=== PATIENT | female | born 1995 | race Caucasian/White ===

== ENCOUNTER 2018-09-27 13:32 | Emergency (ER) | END 2018-09-27 17:08 | disposition home or self-care (01) ==

== ENCOUNTER 2019-02-01 13:05 | Outpatient (CLI) | payer MEDICAID ==
[~2019-02-01] VITALS: Ht 165.1 cm; Wt 89.8 kg
[~2019-02-01 13:05] MED LIST: ACET500C5 PO; CALC-649 PO; CEPH-443 PO; FERR27TA PO; PREN1TAB49 PO
[2019-02-01 13:25] VITALS: Ht 165.1 cm; Wt 89.8 kg
--- NOTE | 2019-02-01 16:27 | PN ---
Triage Information Date/Time Reason for visit: patient had shortness of abdomen before and some abdominal pain Weeks of Gestation 32+ /Para 3/2 Diabetes: none Hypertention: none Objective Heart Rate: 140's Contractions: None Disposition: Discharge Assessment/Plan Labs reviewed Ultrasound reviewed BPP 08/11 Questiosn answered Follow up for provider Precautiosn discussed, She doesn't have SOB VINH RIVERA M.D. Feb 01, 2019 16:27
== END 2019-02-01 16:27 | disposition home or self-care (01) ==
LOC: OBT 13:05 → L-D 13:05 → OBT 16:27
PROVIDERS: ATTEND Obstetrics & Gynecology
DX: O26.893 Other specified pregnancy related conditions, third trimester (principal); R10.9 Unspecified abdominal pain; Z3A.32 32 weeks gestation of pregnancy
CPT/HCPCS: 76817; 76818; Z7500; G0463

== ENCOUNTER 2019-03-13 23:37 | Outpatient (CLI) | payer MEDICAID ==
[~2019-03-13] VITALS: Ht 160 cm; Wt 95.0 kg
[~2019-03-13 23:37] MED LIST changes: -ACET500C5 PO; -CALC-649 PO; -CEPH-443 PO
[2019-03-14 00:33] VITALS: Ht 160 cm; Wt 95.0 kg
[2019-03-14] MEDS ORDERED: TERBUTALINE 1 MG/ML INJ SC ONE (02:00)
[2019-03-14] MEDS ORDERED: LACTATED RINGER'S 1,000 ML IV ONE (02:00)
[2019-03-14] MEDS ORDERED: LACTATED RINGER'S 1,000 ML IV SCH (03:00)
--- NOTE | 2019-03-14 06:29 | TRIAGE ---
OB Triage Datetime Report Generated by CPN: 03/14/2019 06:29 Datetime: 03/14/2019 03:42 Stage of : OB Triage Labor Evaluation Frequency: X1 Monitor Mode: External Duration (sec)2399: 80 Quality: Mild Pattern: Normal: <= 5 Contractions in 10 Minutes Resting Tone [place]: Relaxed Heart Rate FHR Baseline Rate: 135 Monitor Mode: External US Variability: Moderate 6-25 bpm Accelerations: 15X15 Decelerations: None Category: Category I Datetime: 03/14/2019 03:01 Comments: LOSS OF CONTACT. PT SITTING UPRIGHT. EFM REVERTS TO MATERNAL HR Datetime: 03/14/2019 02:31 Pain Assessment Pain Scale: 7 Pain Presence: Intermittent Pain Type: Contraction Pain Location: Abdomen Pain Relief Measures: Comfort Measures Datetime: 03/14/2019 02:30 Stage of : OB Triage Labor Evaluation Frequency: X3 Monitor Mode: External Duration (sec)2399: 60-80 Pattern: Normal: <= 5 Contractions in 10 Minutes Resting Tone [place]: Relaxed Heart Rate FHR Baseline Rate: 135 Monitor Mode: External US Variability: Moderate 6-25 bpm Accelerations: 15X15 Decelerations: None Category: Category I Datetime: 03/14/2019 02:11 Monitor Mode: External US Datetime: 03/14/2019 01:50 Vaginal Exam Dilatation (cms): 1.0 Effacement (%): 50 Station: -3 Exam By: C CASSIUS Datetime: 03/14/2019 01:30 Stage of : OB Triage Labor Evaluation Frequency: IRREGULAR Monitor Mode: External Duration (sec)2399: 30-40 Quality: Mild Pattern: Normal: <= 5 Contractions in 10 Minutes Resting Tone [place]: Relaxed Heart Rate FHR Baseline Rate: 135 Monitor Mode: External US Variability: Moderate 6-25 bpm Accelerations: 15X15 Decelerations: None Category: Category I Datetime: 03/14/2019 00:35 Stage of : OB Triage Labor Evaluation Frequency: X3 Monitor Mode: External Duration (sec)2399: 90 Quality: Mild Pattern: Normal: <= 5 Contractions in 10 Minutes Resting Tone [place]: Relaxed Heart Rate FHR Baseline Rate: 145 Monitor Mode: External US Variability: Moderate 6-25 bpm Accelerations: 15X15 Decelerations: None Category: Category I Datetime: 03/14/2019 00:23 Time of Arrival: 03/13/2019 23:30 EGA: 37.5 Arrived By: Ambulatory Arrived From: Home Chief Complaint: CONTRACTIONS SINCE 1529 Movement: Present Contractions: Irregular Time Contractions Began: 03/13/2019 15:30 Contractions: X1/30 MINS Rupture of Membranes: Denies Vaginal Bleeding: None Vaginal Discharge: Denies Recent Sexual Intercouse: Denies Abdominal Trauma: Not Applicable Patient Complaints: Contractions Time Provider Notified: 03/13/2019 23:45 Provider Notified: DR. GLASS Initial Plan: EFM, SVE, CALL OB Datetime: 03/13/2019 23:45 Monitor Mode: External Contraction Comments: APPLIED Monitor Mode: External US Comments: APPLIED Vaginal Exam Dilatation (cms): 1.0 Effacement (%): 50 Station: -3 Exam By: Madonna HAMMONDS Vaginal Bleeding: None Cervix, Consistency: Moderate Cervix, Position: Posterior Datetime: 03/13/2019 23:40 Stage of : OB Triage Maternal Assessment Level of Consciousness: Fully Conscious DTR's/Clonus: DTRs 2+; No Clonus Headache: Denies Blurred Vision: No Respiratory Effort: Unlabored; Regular Rhythm; Equal Expansion Breath Sounds, Left: Clear and Equal Breath Sounds, Right: Clear and Equal Nausea/Vomiting: Denies RUQ Epigastric Pain: Denies Lower Extremities Edema: None Degree: None Upper Extremities Edema: None Degree: None Facial Edema: None Temperature Route: Oral Fall Risk Assessment History of Falling: (0) No Secondary Diagnosis: (0) No Ambulatory Aid: (0) Bedrest/Nurse Assist IV Therapy: (0) No Gait: (0) Normal/Bedrest/Immobile Mental Status: (0) Oriented to Own Ability Fall Score: 0 Fall Risk Score Definition: No Risk: No action required Pain Assessment Pain Scale: 6 Pain Presence: Intermittent Pain Type: Cramping Pain Location: Abdomen Pain Relief Measures: Comfort Measures Datetime: 02/01/2019 14:59 Respiratory Effort: Unlabored Breath Sounds, Left: Clear and Equal Breath Sounds, Right: Clear and Equal Labor Evaluation Frequency: X1 Monitor Mode: External Duration (sec)2399: 60 Quality: Mild Pattern: Normal: <= 5 Contractions in 10 Minutes Resting Tone [place]: Relaxed Heart Rate FHR Baseline Rate: 135 Monitor Mode: External US Variability: Moderate 6-25 bpm Accelerations: 15X15 Decelerations: None Category: Category I Pain Assessment Pain Scale: 0 Pain Presence: None/Denies Pain Type: N/A Pain Goal: 3 Datetime: 02/01/2019 13:42 Maternal Assessment Level of Consciousness: Fully Conscious DTR's/Clonus: DTRs 1+ Headache: Denies Blurred Vision: No Respiratory Effort: Unlabored Breath Sounds, Left: Clear and Equal Breath Sounds, Right: Clear and Equal Nausea/Vomiting: Denies RUQ Epigastric Pain: Denies Facial Edema: None Monitor Mode: External Resting Tone [place]: Relaxed Heart Rate FHR Baseline Rate: 145 Monitor Mode: External US Variability: Moderate 6-25 bpm Accelerations: 15X15 Decelerations: None Category: Category I Pain Assessment Pain Scale: 0 Pain Presence: None/Denies Pain Type: N/A Pain Goal: 3 Membrane Status: Intact Datetime: 02/01/2019 13:07 EGA: 32.0 Datetime: 02/01/2019 12:55 Time of Arrival: 02/01/2019 12:55 Arrived By: Ambulatory Arrived From: Home Chief Complaint: PT CAME IN C/O SOB AND LEFT SIDE PAIN Movement: Present Contractions: Denies/Absent Rupture of Membranes: Denies Vaginal Discharge: Denies Recent Sexual Intercouse: Denies Abdominal Trauma: Not Applicable
--- NOTE | 2019-03-14 08:46 | PN ---
Triage Information Date/Time 03/14/19 Reason for visit: Uterine contractions Weeks of Gestation 37w6d /Para Diabetes: none Hypertention: none Objective Intake and Output 03/13/19 03/13/19 03/14/19 1515:00 23:00 07:00 IntakeIntake Total 1000 ml BalanceBalance 1000 ml Heart Rate: 140's Heart Rate Comments CAT I Contractions: >10 Minutes Apart Exam VE 150/-3, repeat exam 2hs 50/-3 Results/Medications Results 24 hrs Laboratory Tests Test 03/14/19 01:30 Urine Color YELLOW Urine Clarity CLOUDY A Urine pH 6.0 Urine Specific [place] 1.025 Urine Ketones NEGATIVE Urine Nitrite NEGATIVE Urine Bilirubin NEGATIVE Urine Urobilinogen 1+ H Urine Leukocyte Esterase NEGATIVE Urine Microscopic RBC 7 H Urine Microscopic WBC 7 H Urine Squamous Epithelial Cells MANY A Urine Calcium Oxalate Crystals MANY A Urine Bacteria FEW A Urine Mucus FEW A Urine Hemoglobin NEGATIVE Urine Glucose NEGATIVE Urine Total Protein NEGATIVE Imaging Results BPP 8 TESSA 12.3 Disposition: Discharge Assessment/Plan A IUP 37w6d x2 previous c/s NIL P discharge home with routine labor instructions RTH prn otherwise f/u with her OB OANH GLASS MD March 14, 2019 08:46
== END 2019-03-14 03:55 | disposition home or self-care (01) ==
LOC: L-D 23:37 → OBT 23:37
PROVIDERS: ATTEND Obstetrics & Gynecology
DX: O47.1 False labor at or after 37 completed weeks of gestation (principal); Z3A.37 37 weeks gestation of pregnancy
CPT/HCPCS: 36415; 76818; 81001; 96360; 96372; J3105; J7120; Z7500; Z7610; G0463

== ENCOUNTER 2019-03-23 06:49 | Inpatient (IN) | payer MEDICAID ==
[~2019-03-23] VITALS: Ht 165.1 cm; Wt 95.1 kg
[2019-03-23 07:30] VITALS: BP 106/66; PULSE 86; RESP 16; Ht 165.1 cm; Wt 95.1 kg
[2019-03-23] MEDS ORDERED: MISOPROSTOL 200 MCG TAB PR PRN ×2 (07:30→16:00)
[2019-03-23] MEDS ORDERED: CEFAZOLIN 2 GM/50 ML (PMX) 50 ML IVPB SCH (07:30)
[2019-03-23] MEDS ORDERED: METHYLERGONOVINE 0.2 MG INJ IM PRN ×2 (07:30→16:00)
[2019-03-23] MEDS ORDERED: CARBOPROST 250 MCG INJ IM PRN ×2 (07:30→16:00)
[2019-03-23] MEDS ORDERED: AZITHROMYCIN 500MG/NS (PMX) 250 ML IV SCH (07:30)
[2019-03-23] MEDS ORDERED: OXYTOCIN 30 UNITS/LR 500 ML IV PRN ×2 (07:30→16:00)
[2019-03-23] MEDS ORDERED: LACTATED RINGER'S 1,000 ML IV SCH (07:45)
[2019-03-23] MEDS ORDERED: OXYTOCIN 30 UNITS/LR 500 ML IV SCH ×2 (08:00→15:36)
--- NOTE | 2019-03-23 08:02 | HP ---
Date/Time of Note Date/Time of Note DATE: 03/23/19 TIME: 07:58 OB - History Hx of Present Free Text/Dictation 24 years old 3 para 2-0-0-2 with single intrauterine at 39 weeks and 1 day and two previous delivery desires repeat delivery and permanent surgical sterilization Chief Complaint: Scheduled for repeat delivery and bilateral tubal ligation Estimated Due Date: March 29, 2019 : 3 Para: 2 Spontaneous : 0 Therapeutic : 0 Care: Good Care Ultrasounds: Normal mid trimester US Obstetrical Complications: None Medical Complications: None Past Family/Social History * Past Medical, Surgical, Family and Obstetric Histories reviewed from chart. Blood Type: B+ Rubella: immune RPR/VDRL: Negative GBS Status: Positive HBsAG: Negative OB Admission Exam Vital Signs Vital Signs Vital Signs Date Temp Pulse Resp B/P (MAP) Pulse Ox O2 O2 Flow FiO2 Time Delivery Rate 03/23/19 97.9 86 16 106/66 07:30 (79) Physical Exam HEENT: WNL Heart: Rhythm Normal Lungs: Clear Abdomen: WNL Extremities: Normal Membranes: Intact Heart Rate: 140's Accelerations: Accelerations Present Decelerations: No Decelerations Varibility: Moderate Contractions on Admission: None OB Assessment/Plan Other plan: 24 years old 3 para 2-0-0-2 with 2 previous delivery at 39 w eeks and 1 day desires repeat delivery and permanent surgical sterilization -FHR: No sign of metabolic acidosis- Category I -Continuous EFM, toco -CBC, blood type and screen -Please see the orders -B+/Rubella: Immune -GBS: Positive, no need for GBS prophylaxis as is not in labor and the membranes are intact The risk of delivery including but not limited to bleeding, infection, injury to other organs (bowel, bladder, ureter, vessels, nerves), injury to fetus, blood transfusion, blood transfusion related infection, risk of anesthesia, adhesion, needs for future , removal of uterus or any other indicated surgery, permanent surgical sterilization, other contraceptive options including IUD, increased risk of ectopic if failure of procedure occurs discussed with the patient and her family. She expressed understanding. All of her questions were answered. She signed the informed consent. PHYSICIAN'S VERIFICATION OF INFORMED CONSENT The patient counseled regarding the procedure, its indications, risks, potential complications and alternatives and any questions were answered. Consent was obtained. PLANNED PROCEDURE/TREATMENT: delivery with possible using vacuum/forceps and any other indicated surgery PHYSICIAN'S VERIFICATION OF INFORMED CONSENT FOR BLOOD TRANSFUSION: There is a reasonable possibility that blood transfusion will be necessary as a result of the patient's procedure. I have discussed the following with the patient/patient's legal in home sales representative: An explanation of the benefits and risks of the transfusion of blood or blood products and the possible alternatives. All questions have been answered to the patient's satisfaction. INFORMED CONSENT:The patient has been informed of: The nature of the proposed care, treatment, services, medications, interventions or procedures. Potential benefits, risks or side effects, including potential problems related to recuperation. The likelihood of achieving care treatment and service goals. Reasonable alternatives to the proposed care, treatment and service. The relevant risks, benefits and side effects related to alternatives, including the possible results of not receiving care, treatment and services. When indicated, any limitations on the confidentiality of information learned from or about the patient. If appropriate, the risks, benefits and alternatives of the drugs to be used for sedation/analgesia including moderate sedation. If appropriate, patient has been provided information on the risks, benefits and alternatives to the transfusion of blood and/or blood products. If appropriate, patient has been provided information regarding the [place] Blood Act. WAYNE ROCKWELL March 23, 2019 08:02
--- NOTE | 2019-03-23 08:52 | PREAC ---
Date/Time of Note Date/Time of Note DATE: 03/23/19 TIME: 08:51 Anesthesia Eval and Record Evaluation Time Pre-Procedure Interview DATE: 03/23/19 TIME: 08:51 Age 24 Sex female NPO: 8 hrs Preoperative diagnosis previous c section Planned procedure repeat c section with BTL Past Medical History Past Medical History: None Surgery & Anesthesia Issues No known issue Meds Anticoagulation: No Beta Parth within 24 hr: No Reason Beta Parth not given: Pt. not on B-Parth Reported Medications Ferrous Sulfate (Iron) 1 Tab Tablet, 1 TAB PO DAILY 05/06/12 Vits W-Ca,Fe,Fa(<1MG) () 1 Tab Tablet, 1 TAB PO DAILY 05/06/12 Current Medications Cefazolin Sodium/ Dextrose 50 ml @ 100 mls/hr ONCE IVPB ; Start 03/23/19 at 07:30 Azithromycin 250 ml @ 250 mls/hr ONCE IV ; Start 03/23/19 at 07:30 Oxytocin/Lactated Ringer's 500 ml @ 0 mls/hr ONCE PRN IV .VAGINAL BLEEDING; Start 03/23/19 at 07:30 Methylergonovine Maleate (Methergine) 0.2 mg ONCE PRN IM .VAGINAL BLEEDING; Start 03/23/19 at 07:30 Carboprost Tromethamine (Hemabate) 250 mcg ONCE PRN IM .VAGINAL BLEEDING; Start 03/23/19 at 07:30 Misoprostol (Cytotec) 1,000 mcg ONCE PRN TX .VAGINAL BLEEDING; Start 03/23/19 at 07:30 Lactated Ringer's 1,000 ml @ 125 mls/hr Q8H IV Last administered on 03/23/19at 08:32; Admin Dose 125 MLS/HR; Start 03/23/19 at 07:45 Oxytocin/Lactated Ringer's 500 ml @ 125 mls/hr POST IV ; Start 03/23/19 at 08:00 Meds reviewed: Yes Allergies Coded Allergies: No Known Allergies (Verified Allergy, Unknown, 03/23/19) Allergies Reviewed: Yes Labs/Studies Labs Reviewed: Reviewed by anesthesiologist Result Diagram: 03/23/19 0810 Laboratory Tests 03/23/19 08:10 test: N/A Pre-procedure Exam Last vitals Vital Signs Date Temp Pulse Resp B/P (MAP) Pulse Ox O2 O2 Flow FiO2 Time Delivery Rate 5/22/19 97.9 86 16 106/66 07:30 (79) Airway: Adequate mouth opening, Adequate thyromental dist Mallampati: Mallampati IV Teeth: Normal Lung: Normal Heart: Normal ASA Physical Status ASA physical status: 2 Emergency: None Pre-operative Attestations Prior to commencing anesthesia and surgery, the patient was re-evaluated, there was verification of: *The patient's identity *The results of appropriate recent lab work and preoperative vital signs *The above evaluation not changing prior to induction *Anesthetic plan, risk benefits, alternative and complications discussed with patient/family; questions answered; patient/family understands, accepts and wishes to proceed. JARROD LUKE DO March 23, 2019 08:52
[2019-03-23] MEDS ORDERED: PHENYLephrine (100 MCG/ML) 10ML SYG ONE (08:55)
[2019-03-23] MEDS ORDERED: morphine SULFATE/PF (10 MG/10 ML) INJ ONE (08:55)
[2019-03-23] MEDS ORDERED: OXYTOCIN 30 UNITS/LR 500 ML IV ONE (09:05)
[2019-03-23] MEDS ORDERED: DEXAMETHASONE 4 MG/ML 1 ML INJ ONE (09:05)
[2019-03-23] MEDS ORDERED: ONDANSETRON 4 MG INJ ONE (09:05)
[2019-03-23] MEDS ORDERED: MIDAZOLAM 1 MG/ML 2 ML INJ ONE (09:09)
[2019-03-23] MEDS ORDERED: NALOXONE (0.4 MG/ML) INJ IV PRN (10:00)
[2019-03-23] MEDS ORDERED: HYDROmorphONE 0.5 MG/0.5 ML SYG IV PRN ×2 (10:00)
[2019-03-23] MEDS ORDERED: ZOLPIDEM 5 MG TAB PO PRN (10:00)
[2019-03-23] MEDS ORDERED: ONDANSETRON 4 MG INJ IV PRN (10:00)
[2019-03-23] MEDS ORDERED: DIPHENHYDRAMINE 50 MG INJ IV PRN (10:00)
--- NOTE | 2019-03-23 10:22 | PAC ---
Date/Time of Note Date/Time of Note DATE: 03/23/19 TIME: 10:21 Post-Anesthesia Notes Post-Anesthesia Note Last documented vital signs Vital Signs Date Temp Pulse Resp B/P (MAP) Pulse Ox O2 O2 Flow FiO2 Time Delivery Rate 03/23/19 98 70 19 105/63 99 1015 Activity: WNL Respiratory function: WNL Cardiovascular function: WNL Mental status: Baseline Pain reasonably controlled: Yes Hydration appropriate: Yes Nausea/Vomiting absent: Yes JARROD LUKE DO March 23, 2019 10:22
[2019-03-23] MEDS: KETOROLAC 30 MG INJ IV PRN (12:37)
[2019-03-23 14:05] VITALS: BP 112/59; PULSE 67; RESP 18
[2019-03-23 15:40] VITALS: BP 114/62; PULSE 70; RESP 18
[2019-03-23] MEDS ORDERED: LANOLIN HPA 1 PKT TOP PRN (16:00)
[2019-03-23] MEDS ORDERED: METHYLERGONOVINE 0.2 MG TAB PO PRN (16:00)
[2019-03-23 19:45] VITALS: BP 108/66; PULSE 68; RESP 19
[2019-03-23] MEDS: SENNA/DOCUSATE NA (8.6MG/50MG) TAB PO SCH (22:41)
[2019-03-23 23:45] VITALS: BP 113/57; PULSE 67; RESP 18
[2019-03-24] MEDS: KETOROLAC 30 MG INJ IV PRN (00:02)
[2019-03-24] MEDS ORDERED: MAGNESIUM HYDROXIDE 30ML CUP PO PRN (01:00)
--- NOTE | 2019-03-24 02:10 | OPR ---
Operative Report Planned Procedure Procedure date March 24, 2019 Procedure(s) 1. Repeat delivery 2. Bilateral tubal ligation Performed by see signature line Assistant Media Buyer: DEON ALMANZAR MD Anesthesiologist: JARROD LUKE DO Pre-procedure diagnosis 24 years old 3 para 2-0-0-2 with single intrauterine at 39 weeks and 1 day and two previous delivery desires repeat delivery and permanent surgical sterilization [id number] Anesthesia Type: [id number] spinal Post-Procedure Post-procedure diagnosis 24 years old 3 para 2-0-0-2 with single intrauterine at 39 weeks and 1 day and two previous delivery desires repeat deli very and permanent surgical sterilization Findings 1. Normal uterus, fallopian tubes and ovaries 2. Viable male in cephalic presentation. 8 at one minute and 9 in 5 minutes. Weight: 7 pounds 13 ounces - 3535 g. Time of delivery: 09: 31 3. Placenta with three vessel cord. Nuchal cord x1 4. Amniotic fluid - Clear Estimated Blood Loss: 500 - 600 mls Specimen(s) none Grafts/Implant(s) none Complication(s) none Pt Condition post procedure: stable Disposition: PACU Procedure Description INDICATION AND HISTORY: A 24 years old 3 para 2-0-0-2 with single intrauterine at 39 weeks and 1 day and two previous delivery desires repeat delivery and permanent surgical sterilization. The risk of delivery including but not limited to bleeding, infection, injury to other organs (bowel, bladder, ureter, vessels, nerves), injury to fetus, blood transfusion, blood transfusion related infection, risk of anesthesia, adhesion, needs for future , removal of uterus or any other indicated surgery. Permanent surgical sterilization, other contraceptive options including IUD, increased ectopic if failure of procedure occurs discussed with the patient and her family. She expressed understanding. All of her questions were answered. She signed the informed consent. DESCRIPTION OF OPERATION: The patient was taken to the operating room, where she was identified and the procedure was verified. The patient received two gram of Ancef 30 minutes prior to surgery. Spinal anesthesia was placed. The patient placed in the dorsal supine position with a left tilt. The heart rate was 128 bpm. The patient was then prepped and draped in the normal sterile fashion. A Pfannenstiel skin incision was made and carried down to the fascia with Bovie* knife. The fascia was incised in the midline and the fascial incision was carried laterally with knife. The superior portion of the fascial incision was then grasped with Liborio clamps and tented up and dissected off the underlying rectus muscle with sharp dissection. The lower portion of the fascial incision was then made in a similar fashion. The rectus muscle was and the peritoneum was entered. The peritoneal incision was then stretched and a bladder blade was inserted. Then, an incision was made in the lower uterine segment in a transverse fashion with a knife and extended bluntly. The was delivered atraumatically in cephalic presentation with the above findings. The umbilical cord was clamped and cut. The neonatology resuscitation team was present and the baby was handed to them. A cord blood sample was obtained for further evaluation. The placenta and membrane, which appeared normal were Removed. The uterus was exteriorized and cleared of all clot and debris. The uterus was then closed in a two layer fashion with 0-Monocryl. At the time of closure, hemostasis was noted. Then the left fallopian tube was identified and was grasped using Leigh clamp, segment of distal fallopian tube including fimbria was double ligated with O- plain, excised and sent to pathology. Same procedure repeated at the right side. Hemostasis of stump of both fallopian tube reassured. Then the gutters were irrigated. The peritoneum was reapproximated with 3-0 Vicryl. The muscle was reapproximated with 3-0 Vicryl. The fascia was approximated with 0-Vicryl in a running fashion. The subcutaneous tissue was re approximated with 3-0 vicryl. The skin was closed with 4-0 Monocryl. All instruments, sponges and needle counts were correct x3. The patient tolerated the procedure well. She transferred to the recovery room in stable condition. Vacuum used to assist delivery of head. WAYNE ROCKWELL March 24, 2019 02:10
[2019-03-24] MEDS: DEXTROSE 5%-LR 1,000 ML IV SCH ×4 (02:28→23:36)
[2019-03-24 03:45] VITALS: BP 110/54; PULSE 68; RESP 19
[2019-03-24] MEDS: HYDROCODONE/APAP (5/325) TAB PO SCH ×3 (06:00→21:54)
[2019-03-24 08:45] VITALS: BP 102/54; PULSE 80; RESP 19
[2019-03-24] MEDS: SENNA/DOCUSATE NA (8.6MG/50MG) TAB PO SCH ×2 (09:13→21:54)
[2019-03-24] MEDS: HYDROCODONE/APAP (5/325) TAB PO PRN ×2 (09:14→17:48)
[2019-03-24] MEDS ORDERED: DIPHTH/TET/ACEL PERTUSS (ADULT) 0.5 ML VIAL IM* ONE (11:00)
[2019-03-24] MEDS: IBUPROFEN 800 MG TAB PO SCH ×3 (13:11→21:54)
[2019-03-24 15:34] VITALS: BP 106/62; PULSE 71; RESP 18
[2019-03-24 20:15] VITALS: BP 98/54; PULSE 73; RESP 18
[2019-03-25 03:53] VITALS: BP 103/61; PULSE 72; RESP 20
[2019-03-25] MEDS: HYDROCODONE/APAP (5/325) TAB PO SCH ×3 (06:01→20:41)
[2019-03-25] MEDS: IBUPROFEN 800 MG TAB PO SCH ×3 (06:02→21:53)
[2019-03-25] MEDS: DEXTROSE 5%-LR 1,000 ML IV SCH ×3 (07:36→23:36)
[2019-03-25 08:00] VITALS: BP 107/70; PULSE 61; RESP 18
[2019-03-25] MEDS: SENNA/DOCUSATE NA (8.6MG/50MG) TAB PO SCH ×2 (09:44→20:41)
--- NOTE | 2019-03-25 11:21 | QN ---
Documentation Comment no flatus tolerating diet ok Vss afebrile abdomen soft wound dry calf neg lochia min A stable post RC/S P discharge home in am OANH GLASS MD March 25, 2019 11:21
[2019-03-25] MEDS: HYDROCODONE/APAP (5/325) TAB PO PRN (14:03)
[2019-03-25 16:00] VITALS: BP 114/71; PULSE 72; RESP 18
[2019-03-25 20:41] VITALS: BP 130/81; PULSE 88; RESP 17
[2019-03-26 04:22] VITALS: BP 104/64; PULSE 70; RESP 18
[2019-03-26] MEDS: IBUPROFEN 800 MG TAB PO SCH ×2 (05:07→14:51)
[2019-03-26] MEDS: HYDROCODONE/APAP (5/325) TAB PO SCH ×3 (05:07→14:51)
[2019-03-26] MEDS: DEXTROSE 5%-LR 1,000 ML IV SCH (07:36)
[2019-03-26 08:20] VITALS: BP 120/68; PULSE 67; RESP 19
[2019-03-26] MEDS: SENNA/DOCUSATE NA (8.6MG/50MG) TAB PO SCH (08:31)
[2019-03-26] MEDS ORDERED: DIPHTH/TET/ACEL PERTUSS (ADULT) 0.5 ML VIAL IM* ONE (09:00)
[2019-03-26] MEDS ORDERED: MEASLES,MUMPS,RUBELLA VACCINE INJ SC* ONE (09:00)
--- NOTE | 2019-03-26 16:56 | DS ---
Date/Time of Note Date/Time of Note DATE: 03/26/19 TIME: 16:53 Obstetrical Discharge Record Final Diagnosis Final Diagnosis: Term delivered Other Final Diagnosis Postop day #3 Status pos repeat and BTL Patient stable and afebrile Patient is ambulating, tolerating regular diet, voiding and positive flatus Vital signs stable Hematology - 72 Hrs Test 03/24/19 06:51 Hematocrit 30.8 % (37.0-47.0) L Hemoglobin 10.2 g/dl (12.0-16.0) L Mean Corpuscular Hemoglobin 27.9 pg (29.0-33.0) L Mean Corpuscular Hemoglobin Concent 33.1 g/dl (32.0-37.0) Mean Corpuscular Volume 84.2 fl (82.0-101.0) Mean Platelet Volume 10.6 fl (7.4-10.4) H Platelet Count 209 10^3/UL (140-415) Red Blood Count 3.66 10^6/ul (4.20-5.40) L Red Cell Distribution Width 13.4 % (11.5-14.5) White Blood Count 10.5 10^3/ul (4.8-10.8) # Abdomen soft, fundus firm Incision clean, dry, intact Extremities nontender Assessment and plan Patient stable and doing well Plan to discharge home Patient instructed to follow-up with her own [facility] in 2 and 6 weeks Section Section: Repeat (and BTL) Condition on Discharge Physical Assessment Last Vitals: VS - Last 72 Hours, by Label Date Temp Pulse Resp B/P (MAP) Pulse Ox O2 O2 Flow FiO2 Time Delivery Rate 03/26/19 97.8 67 19 120/68 Room Air 08:20 (85) 03/26/19 98.2 70 18 104/64 04:22 (77) 03/25/19 98.1 88 17 130/81 Room Air 20:41 (97) 03/25/19 97.9 72 18 114/71 Room Air 16:00 (85) 03/25/19 98.0 61 18 107/70 Room Air 08:00 (82) 03/25/19 98.7 72 20 103/61 Room Air 03:53 (75) 03/24/19 98.0 73 18 98/54 (69) Room Air 20:15 03/24/19 98.0 71 18 106/62 Room Air 15:34 (77) 03/24/19 97 Room Air 08:50 03/24/19 98.4 80 19 102/54 Room Air 08:45 (70) 03/24/19 98.0 68 19 110/54 98 Room Air 03:45 (72) 03/23/19 97.9 67 18 113/57 98 Room Air 23:45 (75) 03/23/19 97.7 68 19 108/66 96 Room Air 19:45 (80) Voiding: Yes Bowel Movement: Yes Breast: Soft, non-tender Fundus: Firm Calf Tenderness: No Patient Condition: Good Copies To: CC: WAYNE ROCKWELL ; MELODY OATES MD March 26, 2019 16:56
--- NOTE | 2019-03-27 17:37 | DELSUM ---
Delivery Summary A-C Datetime Report Generated by CPN: 03/27/2019 17:37 DELIVERY PERSONNEL Head Of Ict: GIGI, RAMIN MATERNAL INFORMATION Delivery Anesthesia: Spinal Medications in Delivery: See anes. records Delivery QBL (ml): 500 Placenta Cultured: No Maternal Complications: None LABOR SUMMARY EDC: 03/29/2019 00:00 No. Babies in Womb: 1 Attempted: No Labor Anesthesia: Intrathecal LABOR INFORMATION Reason for Induction: Not Applicable Oxytocin: N/A Group B Beta Strep: Positive Antibiotics # of Doses: 1 Steroids Given: None Reason Steroids Not Administered: Not Applicable MEMBRANES Membranes Rupture Method: Artificial Rupture of Membranes: 03/23/2019 09:30 Length of Rupture (hr): 0.02 Amniotic Fluid Color: Clear Amniotic Fluid Amount: Moderate Amniotic Fluid Odor: None STAGES OF LABOR Stage 3 hr: 0 Stage 3 min: 1 CSECTION DELIVERY Primary Indication: > 2 Previous CSections Secondary Indication: N/A CSection Urgency: Non Elective CSection Incidence: Repeat Labor: No Labor Elective: Nonelective CSection Incision: Lower Uterine Transverse Sterilization Procedure: [place] BABY A INFORMATION Infant Delivery Date/Time: 03/23/2019 09:31 Method of Delivery: Born in Route : No : N/A Forceps: N/A Vacuum Extraction: Successful Shoulder Dystocia : N/A ASSISTED DELIVERY BABY A Vacuum Number of Pulls: 1 Vacuum Number of PopOffs: 0 Vacuum Rn Hemo Dialysis: [facility]OULDER DYSTOCIA BABY A Delivery Date/Time: 03/23/2019 09:31 PRESENTATION/POSITION BABY A Presentation: Cephalic Cephalic Presentation: Vertex Breech Presentation: N/A PLACENTA INFORMATION BABY A Placenta Delivery Time : 03/23/2019 09:32 Placenta Method of Delivery: Manual Removal Placenta Status: Delivered [place]OR[place] BABY A Heart Rate 1 min: >100 bpm Resp Effort 1 min: Slow, Irregular Reflex Irritability 1 min: Cough/Sneeze/Pulls Away Muscle Tone 1 min: Active Motion Color 1 min: Body [place], Extremit Blue Resuscitation Effort 1 min: Tactile Stimulation SCORE 1 MIN: 8 Heart Rate 5 min: >100 bpm Resp Effort 5 min: Good Cry Reflex Irritability 5 min: Cough/Sneeze/Pulls Away Muscle Tone 5 min: Active Motion Color 5 min: Body [place], Extremit Blue SCORE 5 MIN: 9 INFORMATION BABY A Gestational Age at Delivery: 39.1 Gestational Status: Full Term- 39- 40.6 Weeks Infant Outcome : Liveborn Condition : Stable Infant Sex: Male IDENTIFICATION/MEDS BABY A ID Band Number: [id number] ID Band Location: Right Leg; Left Arm Sensor Applied: Yes Sensor Number: [id number] Sensor Location : Cord Clamp Vitamin K Given : Not Given Erythromycin Given: Not Given WEIGHT/LENGTH BABY A Infant Birthweight (gm): 3535 Weight (lb): 7 Infant Weight (oz): 13 Infant Length (in): 19.00 Length (cm): 48.26 CORD INFORMATION BABY A No. Cord Vessels: 3 Nuchal Cord : Around Neck x1, Loose Cord Blood Taken: Yes Suction: Mouth; Nose
== END 2019-03-26 15:46 | disposition home or self-care (01) | DRG 785 ==
LOC: L-D 06:49 → PP1 13:40
PROVIDERS: ADMIT Obstetrics & Gynecology; ATTEND Obstetrics & Gynecology
PROC: 10D00Z1 Extraction of Products of Conception, Low, Open Approach (ICD-10-PCS; principal; 2019-03-24)
PROC: 0UT70ZZ Resection of Bilateral Fallopian Tubes, Open Approach (ICD-10-PCS; 2019-03-24)
DX: O65.5 Obstructed labor due to abnormality of maternal pelvic organs (principal); O34.211 Maternal care for low transverse scar from previous cesarean delivery; Z3A.39 39 weeks gestation of pregnancy; Z37.0 Single live birth; Z30.2 Encounter for sterilization
CPT/HCPCS: 85025; 85610; 85730; 86592; 86850; 86900; 86901; 88302; 90715; 99464; J0456; J0690; J1100; J1200; J1885; J2250; J2274; J2370; J2405; J2590; J3010; J7120; J7121